=== PATIENT | female | born 1990 | race African-American/Black ===

== ENCOUNTER 2021-01-28 01:26 | Emergency (ER) | payer OTHER, MEDICAID ==
[~2021-01-28] VITALS: Ht 154.9 cm; Wt 66.7 kg
[2021-01-28 01:57] LABS: URINE BILIRUBIN NEGATIVE (Negative); URINE BLOOD NEGATIVE (Negative); URINE CLARITY CLEAR; URINE COLOR YELLOW; URINE GLUCOSE-RANDOM NEGATIVE (Negative); URINE KETONES NEGATIVE (Negative); URINE LEUKOCYTES-REFLEX NEGATIVE (Negative); URINE NITRITE-REFLEX NEGATIVE (Negative); URINE PROTEIN NEGATIVE (Negative); URINE SPECIFIC GRAVITY >= 1.030 (1.005-1.030); URINE UROBILINOGEN 0.2 E.U./dl (0.2-1.0)
[2021-01-28 02:49] VITALS: BP 111/62
== END 2021-01-28 02:51 | disposition home or self-care (01) ==
LOC: M.ERS 01:26
PROVIDERS: Personal Emergency Response Attendant
DX: R42 Dizziness and giddiness (principal); R51.9 Headache, unspecified; J34.89 Other specified disorders of nose and nasal sinuses